=== PATIENT | female | born 1975 | race African-American/Black ===

== ENCOUNTER 2019-07-27 07:27 | Outpatient (CLI) | payer OTHER ==
--- NOTE | 2019-07-27 08:25 | ULT ---
ULTRASOUND ABDOMEN: HISTORY: Generalized abdominal pain. FINDINGS: The liver, pancreas, gallbladder, left kidney, spleen, and visualized portions of the aorta and IVC a ppear normal. There is a 1 cm cyst in the superior pole of the right kidney. No free fluid is seen. The common duct measures 5 mm in diameter. IMPRESSION: Right renal cyst. POS: [facility]
== END 2019-07-27 07:28 | disposition home or self-care (01) ==
LOC: BICULT 07:27
PROVIDERS: ATTEND Physician Assistant
DX: R10.84 Generalized abdominal pain (principal); N28.1 Cyst of kidney, acquired
CPT/HCPCS: 76700

== ENCOUNTER 2020-08-27 10:18 | Outpatient (CLI) | payer OTHER, MEDICAID ==
--- NOTE | 2020-08-27 11:34 | RAD ---
XR Thoracic Spine 2 View History: Thoracic back pain Comparison: Radiograph 2019 Findings: Minimal levoscoliosis of the thoracic spine. No acute fracture or malalignment. Ribs are in tact. Heart size is similar. Paraspinal soft tissues are unremarkable. Small C7 cervical ribs. 12 rib-bearing thoracic vertebrae. Impression: Minimal levoscoliosis. No acute osseous abnormality.
== END 2020-08-27 10:19 | disposition home or self-care (01) ==
LOC: BICRAD 10:18
PROVIDERS: ATTEND Nurse Practitioner Family
DX: M54.6 Pain in thoracic spine (principal); M41.9 Scoliosis, unspecified
CPT/HCPCS: 72070

== ENCOUNTER 2021-04-02 11:40 | Outpatient (CLI) | payer BC | END 2021-04-02 11:41 | disposition home or self-care (01) | LOC: BICRAD 11:40 | PROVIDERS: ATTEND Nurse Practitioner Family | DX: M54.14 Radiculopathy, thoracic region (principal) | CPT/HCPCS: 72070 ==

== ENCOUNTER 2022-01-23 12:30 | Outpatient (CLI) | payer BC | END 2022-01-23 12:31 | disposition home or self-care (01) | LOC: MRI 12:30 | PROVIDERS: ATTEND Nurse Practitioner Family | DX: M54.14 Radiculopathy, thoracic region (principal) | CPT/HCPCS: 72146 ==

== ENCOUNTER 2022-03-21 15:16 | Outpatient (CLI) | payer BC ==
[~2022-03-21 15:16] MED LIST: Magnevist 469MG/ML 20 ML VIAL ONE
== END 2022-03-21 15:17 | disposition home or self-care (01) ==
LOC: BICMRI 15:16
PROVIDERS: ATTEND Psychiatry & Neurology Neurology
DX: R20.8 Other disturbances of skin sensation (principal)
CPT/HCPCS: 72157